=== PATIENT | female | born 1990 | race Caucasian/White ===

== ENCOUNTER 2017-01-28 14:40 | Inpatient (IN) | payer OTHER ==
[2017-01-28 16:38] LABS: URINE APPEARANCE CLEAR; URINE BILIRUBIN NEGATIVE (NEGATIVE); URINE BLOOD NEGATIVE (NEGATIVE); URINE COLOR YELLOW; URINE GLUCOSE (UA) NEGATIVE (NEGATIVE); URINE KETONE NEGATIVE (NEGATIVE); URINE LEUK ESTERASE NEGATIVE (NEGATIVE); URINE NITRITE NEGATIVE (NEGATIVE); URINE UROBILINOGEN NEGATIVE E.U./dl (0.2-1.0)
[2017-01-28 16:50] LABS: URINE PROTEIN 1+ (NEGATIVE)
[2017-01-28] MEDS ORDERED: ONDANSETRON 4 MG/2 ML VIAL ONE ×2 (17:08→19:40)
[2017-01-28] MEDS ORDERED: morphine CARPU-JECT 2 MG/1 ML DISP.SYRIN IVPUSH ONE ×2 (17:14→23:53)
[2017-01-28] MEDS ORDERED: SODIUM CHLORIDE 1,000 ML IV STA (17:14)
[2017-01-28] MEDS ORDERED: ONDANSETRON 4 MG/2 ML VIAL IVPUSH ONE ×2 (17:14→19:31)
[2017-01-28 17:18] LABS: URINE MUCUS FEW; URINE RBC 1 /hpf (0-3); URINE WBC 1 /hpf (3-5)
[2017-01-28] MEDS ORDERED: morphine CARPU-JECT 4 MG/1 ML DISP.SYRIN ONE (17:22)
--- NOTE | 2017-01-28 17:23 | PDOC ---
[id number] [id number] ABD PAIN, NAUSEA, VOMITING Time Seen by Provider: 01/28/17 15:16 History Source: Patient Exam Limitations: No Limitations - History of Present Illness Travel History: No Initial Comments: 01/28/17 17:00 26-year-old female presents to the ED with complaints of lower abdominal cramping that began in her right suprapubic now radiating to the right lower quadrant since this morning. Patient also complaining of nausea and vomiting without fever, chills, diarrhea, abdominal distention history of ovarian cysts, or irregular menses. Patient also denies recent travel, recent illness, or recent change in diet. Timing/Duration: reports: constant Quality: reports: moderate, cramping Abdominal Pain Onset Location: reports: suprapubic Pain Radiation: reports: RLQ Activities at Onset: reports: none Aggravating Factors: improves with: None Alleviating Factors: improves with: None Past History - Past Medical History Allergies/Adverse Reactions: Allergies Allergy/AdvReac Type Severity Reaction Status Date / Time shellfish derived Allergy Severe Difficulty Verified 01/28/17 14:45 Breathing Home Medications: Ambulatory Orders Docusate Sodium [Colace -] 100 mg PO TID #90 capsule 01/29/17 Levofloxacin [Levaquin -] 500 mg PO DAILY #7 tablet 01/29/17 Metronidazole [Flagyl -] 500 mg PO TID #21 tablet 01/29/17 Oxycodone HCl/Acetaminophen [Percocet 5-325 mg Tablet] 1 - 2 tab PO Q6H #28 tab MDD 4 01/29/17 Asthma: Yes (LAST ATTACK > 1 YEAR) Cancer: No Cardiac Disorders: No Diabetes: No HTN: No Seizures: No Thyroid Disease: Yes (HX WITH LAST , RESOLVED) - Psycho/Social/Smoking Cessation Hx Suicidal Ideation: No Smoking History: Current some day smoker Have you smoked in the past 12 months: No Information on smoking cessation initiated: No Hx Alcohol Use: No Drug/Substance Use Hx: No Hx Substance Use Treatment: No Patient Lives Alone: No Lives with/in: spouse/SO Review of Systems - Review of Systems Able to Perform ROS?: Yes Constitutional: No: Symptoms Reported HEENTM: No: Symptoms Reported Respiratory: No: Symptoms reported Cardiac (ROS): No: Symptoms Reported ABD/GI: Yes: Nausea, Vomiting, Abdominal cramping : No: Symptoms Reported Musculoskeletal: No: Symptoms Reported Integumentary: No: Symptoms Reported Neurological: No: Symptoms reported *Physical Exam - Vital Signs Last Vital Signs Temp Pulse Resp BP Pulse Ox 97.8 F 95 H 20 122/77 98 01/28/17 14:43 01/28/17 14:43 01/28/17 14:43 01/28/17 14:43 01/28/17 14:43 - Physical Exam General Appearance: Yes: Nourished, Appropriately Dressed. No: Apparent Distress Respiratory/Chest: positive: Lungs Clear, Normal Breath Sounds. negative: Respiratory Distress, Accessory Muscle Use Cardiovascular: positive: Regular Rhythm, Regular Rate. negative: Murmur Gastrointestinal/Abdominal: positive: Normal Bowel Sounds, Soft, Tenderness ( moderate amount to right suprapubic. mild tenderness to right lower quadrant. no right upper quadrant tenderness). negative: Distended, Guarding, Rebound, Mass Musculoskeletal: negative: CVA Tenderness Extremity: negative: Pedal Edema Integumentary: positive: Normal Color, Warm, Moist Neurologic: positive: Motor Strength 5/5 (ambulatory) ED Treatment Course - LABORATORY CBC & Chemistry Diagram: 01/30/17 06:50 01/30/17 06:50 - ADDITIONAL ORDERS Additional order review: Laboratory Results 01/28/17 01/28/17 16:29 16:10 Urine Color Yellow Urine Appearance Clear Urine pH 6.0 Ur Specific [place] 1.028 Urine Protein 1+ H Urine Glucose (UA) Negative Urine Ketones Negative Urine Blood Negative Urine Nitrite Negative Urine Bilirubin Negative Urine Urobilinogen Negative Ur Leukocyte Esterase Negative Urine HCG, Qual Negative Medical Decision Making - Medical Decision Making 01/28/17 17:22 Patient with sudden onset of right suprapubic cramping associated nausea and vomiting since this morning. Patient states pain radiates to her right lower quadrant. Patient concerning for ovarian cyst versus UTI versus versus appendicitis. Will order imaging once labs are resulted. patient ordered for labs, urine, IV fluids, antiemetic and pain control 01/28/17 19:02 Laboratory Tests 01/28/17 01/28/17 01/28/17 16:10 16:29 17:30 WBC 17.6 H D Hgb 13.3 D Hct 41.3 D Urine Protein 1+ H Urine Nitrite Negative Ur Leukocyte Esterase Negative Urine WBC 1 Urine HCG, Qual Negative Patient states feeling better after receiving morphine and antiemetic. Patient has an elevated white count and concerning for appendicitis. Patient ordered for abdominal CT with by mouth IV contrast. *DC/Admit/Observation/Transfer Diagnosis at time of Disposition: Appendicitis, acute - Discharge Dispostion Condition at time of disposition: Stable - Prescriptions
[2017-01-28 17:42] LABS: MCHC 32.2 g/dl (32.0-36.0); MEAN CELL VOLUME 84.1 fl (80-96); MEAN PLT VOLUME 8.9 fl (7.5-11.1); PLATELET COUNT 209 K/MM3 (134-434); RDW 15.3 % (11.6-15.6); WHITE BLOOD COUNT 17.6 K/mm3 (4.0-10.0)
--- NOTE | 2017-01-28 19:33 | PDOC ---
ED Treatment Course - LABORATORY CBC & Chemistry Diagram: 01/28/17 17:30 01/28/17 18:00 - ADDITIONAL ORDERS Additional order review: Laboratory Results 01/28/17 01/28/17 01/28/17 17:30 16:29 16:10 Sodium Cancelled Potassium Cancelled Chloride Cancelled Carbon Dioxide Cancelled Anion Gap Cancelled BUN Cancelled Creatinine Cancelled Creat Clearance w eGFR Cancelled Random Glucose Cancelled Calcium Cancelled Total Bilirubin Cancelled AST Cancelled ALT Cancelled Alkaline Phosphatase Cancelled Total Protein Cancelled Albumin Cancelled Urine Color Yellow Urine Appearance Clear Urine pH 6.0 Ur Specific [place] 1.028 Urine Protein 1+ H Urine Glucose (UA) Negative Urine Ketones Negative Urine Blood Negative Urine Nitrite Negative Urine Bilirubin Negative Urine Urobilinogen Negative Ur Leukocyte Esterase Negative Urine RBC 1 Urine WBC 1 Ur Epithelial Cells Few Urine Mucus Few Urine HCG, Qual Negative 01/28/17 17:30 RBC 4.91 D MCV 84.1 MCHC 32.2 RDW 15.3 MPV 8.9 D Neutrophils % Y Lymphocytes % Y - Medications Given in the ED: ED Medications Discontinued Medications Generic Name Dose Route Start Last Admin Trade Name Freq PRN Reason Stop Dose Admin Sodium Chloride 1,000 mls @ 1,000 mls/hr 01/28/17 17:14 01/28/17 17:18 Normal Saline - IV 01/28/17 18:13 1,000 mls/hr ASDIR STA Administration Morphine Sulfate 4 mg 01/28/17 17:14 01/28/17 17:25 Morphine Injection - IVPUSH 01/28/17 17:15 4 mg ONCE ONE Administration Ondansetron HCl 4 mg 01/28/17 17:14 01/28/17 17:18 Zofran Injection IVPUSH 01/28/17 17:15 4 mg ONCE ONE Administration Progress Note - Progress Note Progress Note: I have received report from KATI Penn regarding this patient. Pt's initial chief complaint: right lower abd pain with nausea and vomiting. Pt's work up completed prior to sign out: labs, UA Pt treatment given from prior staff: IV fluids, morphine, zofran Pt plan to be completed: Awaiting CT scan abd/pelvis Dispo: Pending Medical Decision Making - Medical Decision Making A/P: 26 y/o afebrile female c/o right lower abd pain with nausea and vomiting since this morning. The patient was initially assessed by [employer] [facility]. Patient has an elevated WBC count of 17. Awaiting CT scan of abd/pelvis. CT scan abd/pelvis IMPRESSION: Acute appendicitis without abscess formation. Pt made NPO. Ordered blood cultures and 3g IV unasyn Placed call to Dr. Capps and Dr. Dominick Capps will take her to surgery in the morning Dr. Tan wants her admitted to hospitalist Dr. Gupta accepts admission to med/surg *DC/Admit/Observation/Transfer Diagnosis at time of Disposition: Appendicitis, acute Qualifiers: Acute appendicitis type: with localized peritonitis Qualified Code(s): K35.3 - Acute appendicitis with localized peritonitis - Discharge Dispostion Condition at time of disposition: Stable Admit: Yes - Referrals Referrals: Bola Tan MD [Primary Care Provider] -
[2017-01-28 19:47] LABS: ALBUMIN 3.7 g/dl (3.4-5.0); ANION GAP 10 (8-16); CALCIUM 8.9 mg/dL (8.5-10.1); CO2 25 mmol/L (21-32); CREATININE 0.6 mg/dL (0.55-1.02); GLUCOSE,RANDOM 107 mg/dL (74-106); SGOT/AST 10 U/L (15-37); SGPT/ALT 22 U/L (12-78)
[2017-01-28 19:50] LABS: ALK PHOS 115 U/L (45-117); BILIRUBIN,TOTAL 0.9 mg/dL (0.2-1.0); TOT PROT 7.3 g/dl (6.4-8.2)
[2017-01-28 22:02] LABS: PLATELET ESTIMATE ADEQUATE (NORMAL)
[2017-01-28] MEDS ORDERED: AMPICILLIN NA/SULBACTAM NA 3 GM in SODIUM CHLORIDE 100 ML IVPB ONE (22:35)
--- NOTE | 2017-01-28 23:17 | PN ---
<Rafi Gupta - Last Filed: 01/28/17 23:16> Teaching Attending Note Name of Resident: Ji Walls ATTENDING PHYSICIAN STATEMENT I saw and evaluated the patient. I reviewed the resident's note and discussed the case with the resident. I agree with the resident's findings and plan as documented. SUBJECTIVE: OBJECTIVE: ASSESSMENT AND PLAN: <Cyndy Manehel - Last Filed: 01/29/17 05:08> Teaching Attending Note ATTENDING PHYSICIAN STATEMENT I saw and evaluated the patient. I reviewed the resident's note and discussed the case with the resident. I agree with the resident's findings and plan as documented. SUBJECTIVE: The patient is a 26 yo F with PMHx of Asthma who presents with lower abdominal cramping that began in her R superpubic region which radiated to RLQ. Patient notes nausea and vomiting and intermittent chills. OBJECTIVE: Last Vital Signs Temp Pulse Resp BP Pulse Ox 97.8 F 83 18 138/78 96 01/28/17 14:43 01/28/17 23:02 01/28/17 23:02 01/28/17 23:02 01/28/17 23:02 GEN: NAD. +Obese female resting in bed. HEENT: NCAT, PERRL CARD: RRR, S1 S2 RESP: CTAB ABD: +Tenderness to palpation RLQ. EXT: - CCE CBCD WBC 17.6 K/mm3 (4.0-10.0) H D 01/28/17 17:30 RBC 4.91 M/mm3 (3.60-5.2) D 01/28/17 17:30 Hgb 13.3 GM/dL (10.7-15.3) D 01/28/17 17:30 Hct 41.3 % (32.4-45.2) D 01/28/17 17:30 MCV 84.1 fl (80-96) 01/28/17 17:30 MCHC 32.2 g/dl (32.0-36.0) 01/28/17 17:30 RDW 15.3 % (11.6-15.6) 01/28/17 17:30 Plt Count 209 K/MM3 (134-434) D 01/28/17 17:30 MPV 8.9 fl (7.5-11.1) D 01/28/17 17:30 CMP Sodium 138 mmol/L (136-145) 01/28/17 18:00 Potassium 4.1 mmol/L (3.5-5.1) 01/28/17 18:00 Chloride 103 mmol/L (98-107) 01/28/17 18:00 Carbon Dioxide 25 mmol/L (21-32) 01/28/17 18:00 Anion Gap 10 (8-16) 01/28/17 18:00 BUN 11 mg/dL (7-18) D 01/28/17 18:00 Creatinine 0.6 mg/dL (0.55-1.02) 01/28/17 18:00 Creat Clearance w eGFR > 60 (>60) 01/28/17 18:00 Calcium 8.9 mg/dL (8.5-10.1) 01/28/17 18:00 Total Bilirubin 0.9 mg/dL (0.2-1.0) D 01/28/17 18:00 AST 10 U/L (15-37) L 01/28/17 18:00 ALT 22 U/L (12-78) D 01/28/17 18:00 Alkaline Phosphatase 115 U/L (45-117) 01/28/17 18:00 Total Protein 7.3 g/dl (6.4-8.2) D 01/28/17 18:00 Albumin 3.7 g/dl (3.4-5.0) D 01/28/17 18:[address] Abdomen and Pelvis with Contrast Impression: Findings consistent with acute appendicitis with stranding of the surrounding mesenteric fat and without evidence of extraluminal air or abscess formation. Diverticulosis coli in the sigmoid colon without evidence of acute diverticulitis. Enlarged/elongated liver that may be due to a Tarun's lobe. ASSESSMENT AND PLAN: The patient is a 26 yo F with PMHx of Asthma who presents with abdominal pain found to have acute appendicitis. 1.) Acute Appendicitis -NPO -IVF -Surgical consult -Continue with unasyn -Pain control -Type and screen -Coags in AM 2.) DVT ppx -SCDs Admit to med surg Documentation prepared by Latricia Mane, acting as esthetician and manager medical spa for Rafi Gupta MD.
[2017-01-28] MEDS ORDERED: LACTATED RINGERS SOLUTION 1,000 ML IV SCH (23:45)
[2017-01-28] MEDS ORDERED: morphine CARPU-JECT 2 MG/1 ML DISP.SYRIN ONE (23:58)
[2017-01-29] MEDS ORDERED: morphine CARPU-JECT 4 MG/1 ML DISP.SYRIN IVPUSH PRN
--- NOTE | 2017-01-29 00:08 | MSN ---
Admitting History and Physical - Primary Care Physician PCP: Dr. Tan - Admission Chief Complaint: Abdominal cramping since this morning History of Present Illness: Pt is a 26 yo morbidly obese F with a PMHx of asthma who presents to the ED with abdominal cramping since this morning. The pain was initially located in the umbilical area and subsequently moved down into the RLQ. Pt admits to associated nausea with 3 total episodes of vomiting (2x at home, 1x in ED). She denies blood in the vomit. Pt has been experiencing chills on and off since this morning and has a loss of appetite. Denies fevers, diarrhea, SOB, CP, or irregular menses. 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) - Past Surgical History Past Surgical History: Yes: (x2) - Smoking History Smoking history: Current every day smoker (1/2 ppd for 10 yrs) Have you smoked in the past 12 months: Yes - Alcohol/Substance Use Hx Alcohol Use: No History of Substance Use: reports: None - Social History ADL: Independent History of Recent Travel: No Home Medications - Allergies Allergies/Adverse Reactions: Allergies Allergy/AdvReac Type Severity Reaction Status Date / Time shellfish derived Allergy Severe Difficulty Verified 01/28/17 14:45 Breathing - Home Medications Home Medications: Ambulatory Orders NK [No Known Home Medication] 01/28/17 Home Medications (free text): Began taking OCPs a few days ago Family Disease History - Family Disease History Other Family History: Hyperthyroidism, hypothyroidism, heart disease, cancer ( multiple types) Review of Systems - Review of Systems Constitutional: reports: Chills, Loss of Appetite. denies: Fever Cardiovascular: denies: Chest Pain, Shortness of Breath Respiratory: denies: SOB Gastrointestinal: reports: Abdominal Pain, Nausea, Vomiting. denies: Diarrhea, Melena, Vomiting Blood Genitourinary: denies: Burning, Dysuria Neurological: reports: Other (Lightheadedness) Physical Examination Vital Signs: Vital Signs Period Temp Pulse Resp BP Sys/Mccain Pulse Ox Last 24 Hr 97.8 F 83-95 18-20 122-138/77-78 96-98 Constitutional: Yes: No Distress, Calm, Obese Eyes: Yes: WNL, Conjunctiva Clear, EOM Intact HENT: Yes: WNL, Atraumatic, Normocephalic Neck: Yes: WNL, Trachea Midline Cardiovascular: Yes: WNL, Regular Rate and Rhythm, S1, S2. No: JVD, Gallop, Murmur, Rub Respiratory: Yes: WNL, Regular, CTA Bilaterally. No: Rales, Rhonchi, Wheezes Gastrointestinal: Yes: Soft, Abdomen, Obese, Hypoactive Bowel Sounds, Tenderness (TTP over the R side of abdomen, + guarding), Tenderness, Epigastrium , Other (Positive obturator sign, negative Rovsings) Extremities: Yes: WNL Edema: No Peripheral Pulses: Left Doralis Pedis: 2+, Right Dorsalis Pedis: 2+ Integumentary: No: Jaundice, Petechiae, Venous Stasis Changes Neurological: Yes: WNL, Alert, Oriented ...Motor Strength: WNL Psychiatric: Yes: WNL, Alert, Oriented Labs: CBC WBC 17.6 K/mm3 (4.0-10.0) H D 01/28/17 17:30 RBC 4.91 M/mm3 (3.60-5.2) D 01/28/17 17:30 Hgb 13.3 GM/dL (10.7-15.3) D 01/28/17 17:30 Hct 41.3 % (32.4-45.2) D 01/28/17 17:30 MCV 84.1 fl (80-96) 01/28/17 17:30 MCHC 32.2 g/dl (32.0-36.0) 01/28/17 17:30 RDW 15.3 % (11.6-15.6) 01/28/17 17:30 Plt Count 209 K/MM3 (134-434) D 01/28/17 17:30 MPV 8.9 fl (7.5-11.1) D 01/28/17 17:30 Neutrophils % 89.0 % (42.8-82.8) H D 01/28/17 17:30 Lymphocytes % 8.0 % (8-40) D 01/28/17 17:30 Monocytes % 3.0 % (3.8-10.2) L 01/28/17 17:30 Platelet Estimate Adequate (NORMAL) 01/28/17 17:30 CMP Sodium 138 mmol/L (136-145) 01/28/17 18:00 Potassium 4.1 mmol/L (3.5-5.1) 01/28/17 18:00 Chloride 103 mmol/L (98-107) 01/28/17 18:00 Carbon Dioxide 25 mmol/L (21-32) 01/28/17 18:00 Anion Gap 10 (8-16) 01/28/17 18:00 BUN 11 mg/dL (7-18) D 01/28/17 18:00 Creatinine 0.6 mg/dL (0.55-1.02) 01/28/17 18:00 Creat Clearance w eGFR > 60 (>60) 01/28/17 18:00 Random Glucose 107 mg/dL (74-106) H 01/28/17 18:00 Calcium 8.9 mg/dL (8.5-10.1) 01/28/17 18:00 Total Bilirubin 0.9 mg/dL (0.2-1.0) D 01/28/17 18:00 AST 10 U/L (15-37) L 01/28/17 18:00 ALT 22 U/L (12-78) D 01/28/17 18:00 Alkaline Phosphatase 115 U/L (45-117) 01/28/17 18:00 Total Protein 7.3 g/dl (6.4-8.2) D 01/28/17 18:00 Albumin 3.7 g/dl (3.4-5.0) D 01/28/17 18:00 Urine Test Results Urine Color Yellow 01/28/17 16:29 Urine Appearance Clear 01/28/17 16:29 Urine pH 6.0 (5.0-8.0) 01/28/17 16:29 Ur Specific [place] 1.028 (1.001-1.035) 01/28/17 16:29 Urine Protein 1+ (NEGATIVE) H 01/28/17 16:29 Urine Glucose (UA) Negative (NEGATIVE) 01/28/17 16:29 Urine Ketones Negative (NEGATIVE) 01/28/17 16:29 Urine Blood Negative (NEGATIVE) 01/28/17 16:29 Urine Nitrite Negative (NEGATIVE) 01/28/17 16:29 Urine Bilirubin Negative (NEGATIVE) 01/28/17 16:29 Ur Leukocyte Esterase Negative (NEGATIVE) 01/28/17 16:29 Urine RBC 1 /hpf (0-3) 01/28/17 16:29 Urine WBC 1 /hpf (3-5) 01/28/17 16:29 Ur Epithelial Cells Few /hpf (FEW) 01/28/17 16:29 Urine Mucus Few 01/28/17 16:29 Urine B-HCG: negative Blood Cx: pending Imaging - Results Cat Scan: Report Reviewed (Acute appendicitis (18 mm dilated appendix with fat stranding, -abscess, -perf), sigmoid diverticula, enlarged liver, nml ovaries), Image Reviewed Problem List - Problems (1) Appendicitis, acute (2) H/O section complicating (3) Morbidly obese (4) Status post primary low transverse section Assessment/Plan Pt is a 26 yo morbidly obese F with a PMHx of asthma who presented to the ED with RLQ abdominal pain since this morning. Pt was diagnosed with acute appendicitis via CT scan and is being admitted for medical and surgical management. 1. Acute appendicitis -As seen on CTAP with oral contrast. No abscess or perforation seen -IVF with LRs @125cc/hr -Unasyn 3gm IV Q6H (first dose given in ED) -Morphine 2gm IV Q4H prn -Zofran 4mg IV prn -Type and screen pending -Coags pending -Repeat CBC and BMP in AM -FU blood Cx -NPO -Surgery consult pending (Dr. Capps) 2. Leukocytosis -WBC elevated @17.6 -Most likely 2/2 acute appendicitis -Continue to trend 3. Hx of asthma -Stable -Albuterol inhaler 1 amp NEB Q8H prn 4. FEN -LRs @125cc/hr -BMP WNL -NPO in preparation for surgery 5. DVT ppx -SCDs -Hold heparin considering pt will be going for surgery 6. Dispo -Pt to be admitted for appendectomy by Dr. Jefry Pitts, MS3
--- NOTE | 2017-01-29 00:27 | HP ---
CHIEF COMPLAINT: abd pain PCP: Dr. Tan HISTORY OF PRESENT ILLNESS: 26 y/o morbidly obese F presents to ER with c/o abdominal pain since this morning. Pain is throbbing and constant and associated with nausea, vomiting (3 episodes, 2 in ER, 1 at home, all non-bloody), and intermittent chills. Pain started in umbilical area and has now moved to the right side of her abdomen and she has loss of appetite. She states this is the first time she has had this type of pain. She denies any CP, SOB, fevers, trauma to the area, diarrhea , constipation, dysuria. She has started to take OCPs 2 days ago. ER course was notable for: (1) unasyn, ct abd w/oral contrast, zofran, morphine (2) (3) PAST MEDICAL HISTORY: morbid obesity, asthma PAST SURGICAL HISTORY: x2 Social History: Smokin/2 ppd for 10 years Alcohol: denies Drugs: denies Family History: Hypo and hyperthyroid, and many different cancers Allergies shellfish derived Allergy (Severe, Verified 01/28/17 14:45) Difficulty Breathing HOME MEDICATIONS: Home Medications Medication Instructions Recorded NK [No Known Home Medication] 01/28/17 REVIEW OF SYSTEMS CONSTITUTIONAL: chills, loss of appetite Absent: fever, diaphoresis, generalized weakness, malaise, weight change HEENT: Absent: rhinorrhea, nasal congestion, throat pain, throat swelling, difficulty swallowing, mouth swelling, ear pain, eye pain, visual changes CARDIOVASCULAR: Absent: chest pain, syncope, palpitations, irregular heart rate, lightheadedness , peripheral edema RESPIRATORY: Absent: cough, shortness of breath, dyspnea with exertion, orthopnea, wheezing, stridor, hemoptysis GASTROINTESTINAL: abd pain, nausea, vomiting Absent: abdominal distension, diarrhea, constipation, melena, hematochezia GENITOURINARY: Absent: dysuria, frequency, urgency, hesitancy, hematuria, flank pain, genital pain MUSCULOSKELETAL: Absent: myalgia, arthralgia, joint swelling, back pain, neck pain SKIN: Absent: rash, itching, pallor HEMATOLOGIC/IMMUNOLOGIC: Absent: easy bleeding, easy bruising, lymphadenopathy, frequent infections ENDOCRINE: Absent: unexplained weight gain, unexplained weight loss, heat intolerance, cold intolerance NEUROLOGIC: Absent: headache, focal weakness or paresthesias, dizziness, unsteady gait, seizure, mental status changes, bladder or bowel incontinence PSYCHIATRIC: Absent: anxiety, depression, suicidal or homicidal ideation, hallucinations. PHYSICAL EXAMINATION Vital Signs - 24 hr 01/28/17 01/28/17 14:43 23:02 Temperature 97.8 F Pulse Rate 95 H Pulse Rate [ 83 Apical] Respiratory 20 18 Rate Blood Pressure 122/77 Blood Pressure 138/78 [Left Arm] O2 Sat by Pulse 98 96 Oximetry (%) GENERAL: Awake, alert, and fully oriented, in no acute distress. HEAD: Normal with no signs of trauma. EYES: Pupils equal, round and reactive to light, extraocular movements intact, sclera anicteric, conjunctiva clear. No lid lag. EARS, NOSE, THROAT: Ears normal, nares patent, oropharynx clear without exudates. Moist mucous membranes. NECK: Normal range of motion, supple without lymphadenopathy, JVD, or masses. LUNGS: Breath sounds equal, clear to auscultation bilaterally. No wheezes, and no crackles. No accessory muscle use. HEART: Regular rate and rhythm, normal S1 and S2 without murmur, rub or gallop. ABDOMEN: epigastric & LUQ moderate pain to palpation; RUQ mild pain to palpation. obese, normoactive bowel sounds. +obturator sign, mild tenderness at mcburneys point. MUSCULOSKELETAL: Normal range of motion at all joints. No bony deformities or tenderness LOWER EXTREMITIES: 2+ pulses, warm, well-perfused. No calf tenderness. No peripheral edema. NEUROLOGICAL: Normal speech. Gait not observed. PSYCHIATRIC: Cooperative. Good eye contact. Appropriate mood and affect. SKIN: Warm, dry, normal turgor, no rashes or lesions noted, normal capillary refill. Laboratory Results - last 24 hr 01/28/17 01/28/17 01/28/17 16:10 16:29 17:30 WBC 17.6 H D RBC 4.91 D Hgb 13.3 D Hct 41.3 D MCV 84.1 MCHC 32.2 RDW 15.3 Plt Count 209 D MPV 8.9 D Neutrophils % 89.0 H D Lymphocytes % 8.0 D Monocytes % 3.0 L Platelet Estimate Adequate Sodium Potassium Chloride Carbon Dioxide Anion Gap BUN Creatinine Creat Clearance w eGFR Random Glucose Calcium Total Bilirubin AST ALT Alkaline Phosphatase Total Protein Albumin Urine Color Yellow Urine Appearance Clear Urine pH 6.0 Ur Specific [place] 1.028 Urine Protein 1+ H Urine Glucose (UA) Negative Urine Ketones Negative Urine Blood Negative Urine Nitrite Negative Urine Bilirubin Negative Urine Urobilinogen Negative Ur Leukocyte Esterase Negative Urine RBC 1 Urine WBC 1 Ur Epithelial Cells Few Urine Mucus Few Urine HCG, Qual Negative 01/28/17 01/28/17 17:30 18:00 WBC RBC Hgb Hct MCV MCHC RDW Plt Count MPV Neutrophils % Lymphocytes % Monocytes % Platelet Estimate Sodium Cancelled 138 Potassium Cancelled 4.1 Chloride Cancelled 103 Carbon Dioxide Cancelled 25 Anion Gap Cancelled 10 BUN Cancelled 11 D Creatinine Cancelled 0.6 Creat Clearance w eGFR Cancelled > 60 Random Glucose Cancelled 107 H Calcium Cancelled 8.9 Total Bilirubin Cancelled 0.9 D AST Cancelled 10 L ALT Cancelled 22 D Alkaline Phosphatase Cancelled 115 Total Protein Cancelled 7.3 D Albumin Cancelled 3.7 D Urine Color Urine Appearance Urine pH Ur Specific [place] Urine Protein Urine Glucose (UA) Urine Ketones Urine Blood Urine Nitrite Urine Bilirubin Urine Urobilinogen Ur Leukocyte Esterase Urine RBC Urine WBC Ur Epithelial Cells Urine Mucus Urine HCG, Qual Imaging: CT abd w/oral contrast 01/28/17 Impression: Findings consistent with acute appendicitis with stranding of the surrounding mesenteric fat and without evidence of extraluminal air or abscess formation. Diverticulosis coli in the sigmoid colon without evidence of acute diverticulitis. Enlarged/elongated liver that may be due to a Tarun's lobe. Case discussed with Dr. Luz Maria Pinzon, emergency room caring attending physician Reported By: Feliberto Whelan MD 01/28/17 7840 Active Medications Albuterol Sulfate (Ventolin 0.083% Nebulizer Soln -) 1 amp NEB Q8H PRN PRN Reason: SHORT OF BREATH/WHEEZING Lactated Ringer's (Lactated Ringers Solution) 1,000 mls @ 125 mls/hr IV ASDIR MARK Ampicillin Sodium/Sulbactam Sodium (Unasyn 3 Gm (Pre-Docked)) 100 mls @ 200 mls /hr IVPB ONCE ONE Stop: 01/29/17 03:29 Ampicillin Sodium/Sulbactam Sodium (Unasyn 3 Gm (Pre-Docked)) 100 mls @ 200 mls /hr IVPB Q6H-IV MARK Morphine Sulfate (Morphine Injection -) 2 mg IVPUSH Q4H PRN PRN Reason: PAIN ASSESSMENT/PLAN: 26 y/o F w/morbid obesity presents to ER w/abd pain and found to have acute appendicitis on CT abd. -Acute appendicitis -CT abd: Findings consistent w/acute appendicitis with stranding of the surrounding mesenteric fat and w/o evidence of extraluminal air or abscess formation. -Unasyn 3g iv q6h -Morphine 2mg IV q4h prn for pain -LR @ 125 ml/hr -Surgery consulted - Dr. Capps -NPO -Type and screen in AM ordered, coags ordered for AM -Leukocytosis most likely reactive to acute appendicitis -Monitor WBC -UA negative -f/u BCx -History of asthma -albuterol nebs q8h prn for sob/wheezing -Morbid Obesity -weight loss -DVT ppx -SCDs -FEN -LR @ 125ml/hr -electrolytes wnl -NPO -Dispo -Admit to m/s Problem List - Problem (1) Appendicitis, acute Code(s): K35.80 - UNSPECIFIED ACUTE APPENDICITIS Qualifiers: Acute appendicitis type: with localized peritonitis Qualified Code(s): K35.3 - Acute appendicitis with localized peritonitis (2) Morbidly obese Code(s): E66.01 - MORBID (SEVERE) OBESITY DUE TO EXCESS CALORIES (3) Leukocytosis Code(s): D72.829 - ELEVATED WHITE BLOOD CELL COUNT, UNSPECIFIED Visit type - Emergency Visit Emergency Visit: Yes ED Registration Date: 01/28/17 Care time: The patient presented to the Emergency Department on the above date and was hospitalized for further evaluation of their emergent condition. - New Patient This patient is new to me today: Yes Date on this admission: 01/30/17 - Critical Care Critical Care patient: No
[2017-01-29] MEDS ORDERED: AMPICILLIN NA/SULBACTAM NA 100 ML IVPB ONE (03:00)
[2017-01-29] MEDS ORDERED: AMPICILLIN NA/SULBACTAM NA 3 GM in SODIUM CHLORIDE 100 ML IVPB SCH (03:00)
[2017-01-29 03:59] VITALS: BMI 57.1
[2017-01-29 07:31] LABS: BASOPHIL 0.7 % (0-2.0); EOSINOPHIL 0.7 % (0-4.5); MCH 26.5 pg (25.7-33.7); MCHC 32.2 g/dl (32.0-36.0); MEAN CELL VOLUME 82.3 fl (80-96); MEAN PLT VOLUME 7.9 fl (7.5-11.1); NEUTROPHILS 72.6 % (42.8-82.8); PLATELET COUNT 193 K/MM3 (134-434); RDW 14.8 % (11.6-15.6); WHITE BLOOD COUNT 11.3 K/mm3 (4.0-10.0)
[2017-01-29] MEDS ORDERED: AMPICILLIN NA/SULBACTAM NA 1.5 GM in SODIUM CHLORIDE 100 ML IVPB ONE (08:07)
--- NOTE | 2017-01-29 08:12 | CONSULT ---
[id number] CONSULT REQUEST: We have been asked to surgically evaluate this patient for acute appendicitis. PCP: Gary Blanton HISTORY OF PRESENT ILLNESS: 26 yo female presented to [facility] complaining of abdominal pain that began yesterday morning. The pain began in the center of her abdomen and then moved to her right side. The pain is associated with nausea and vomiting. Her last meal was yesterday around 10 in the morning. Her last BM was yesterday, she denies diarrhea or constipation. She admits to having chills, but denies fever. PMHx: Asthma, last inhaler use 2-3 months ago PSHx: x2 Admits cigarette use, 10 cigs/day, denies alcohol use Home Medications Medication Instructions Recorded NK [No Known Home Medication] 01/28/17 Allergies Allergy/AdvReac Type Severity Reaction Status Date / Time shellfish derived Allergy Severe Difficulty Verified 01/28/17 14:45 Breathing REVIEW OF SYSTEMS: CONSTITUTIONAL: Present: chills, loss of appetite Absent: fever, diaphoresis CARDIOVASCULAR: Absent: chest pain, palpitations, lightheadedness RESPIRATORY: Absent: cough, shortness of breath GASTROINTESTINAL: Present: abdominal pain, nausea, vomiting Absent: diarrhea, constipation GENITOURINARY: Absent: Dysuria MUSCULOSKELETAL: Absent: myalgia, arthralgia SKIN: Absent: rash, itching HEMATOLOGIC/IMMUNOLOGIC: Absent: easy bleeding, easy bruising NEUROLOGIC: Absent: headache, dizziness PHYSICAL EXAM: GENERAL: Awake, alert, and fully oriented, in no acute distress. HEAD: Normal with no signs of trauma. EYES: PERRL, sclera anicteric, conjunctiva clear. NECK: Normal ROM LUNGS: Clear to auscultation bilat HEART: Regular rate and rhythm ABDOMEN: Obese, soft, tender to palpation in RLQ, no guarding MUSCULOSKELETAL: Normal ROM at all joints UPPER EXTREMITIES: warm, well-perfused. LOWER EXTREMITIES: warm, well-perfused. No calf tenderness NEUROLOGICAL: Normal speech, gait not observed. PSYCH: Cooperative SKIN: Warm, dry Vital Signs Temperature 98.1 F 01/29/17 06:00 Pulse Rate 83 01/29/17 06:00 Respiratory Rate 16 01/29/17 06:00 Blood Pressure 123/52 01/29/17 06:00 O2 Sat by Pulse Oximetry (%) 96 01/29/17 03:05 Lab Results WBC 11.3 K/mm3 (4.0-10.0) H D 01/29/17 06:00 RBC 4.35 M/mm3 (3.60-5.2) 01/29/17 06:00 Hgb 11.5 GM/dL (10.7-15.3) D 01/29/17 06:00 Hct 35.8 % (32.4-45.2) 01/29/17 06:00 MCV 82.3 fl (80-96) 01/29/17 06:00 MCHC 32.2 g/dl (32.0-36.0) 01/29/17 06:00 RDW 14.8 % (11.6-15.6) 01/29/17 06:00 Plt Count 193 K/MM3 (134-434) 01/29/17 06:00 Sodium 138 mmol/L (136-145) 01/28/17 18:00 Potassium 4.1 mmol/L (3.5-5.1) 01/28/17 18:00 Chloride 103 mmol/L (98-107) 01/28/17 18:00 Carbon Dioxide 25 mmol/L (21-32) 01/28/17 18:00 Anion Gap 10 (8-16) 01/28/17 18:00 BUN 11 mg/dL (7-18) D 01/28/17 18:00 Creatinine 0.6 mg/dL (0.55-1.02) 01/28/17 18:00 Random Glucose 107 mg/dL (74-106) H 01/28/17 18:00 Calcium 8.9 mg/dL (8.5-10.1) 01/28/17 18:00 CT abdomen/pelvis: Findings consistent with acute appendicitis with stranding of surrounding mesenteric fat and without evidence of extraluminal air or abscess formation. Problem List - Problems (1) Appendicitis, acute Assessment/Plan: Patient discussed with Dr. Capps, patient is booked to go to the OR today for a laparoscopic, possible open, appendectomy NPO, IV fluids Abx- Unasyn ordered Pain control Code(s): K35.80 - UNSPECIFIED ACUTE APPENDICITIS Qualifiers: Acute appendicitis type: with localized peritonitis Qualified Code(s ): K35.3 - Acute appendicitis with localized peritonitis Visit type - Case Type Case Type: ED Admission - Emergency Emergency Visit: Yes ED Registration Date: 01/28/17 Care time: The patient presented to the Emergency Department on the above date and was hospitalized for further evaluation of their emergent condition. - New patient This patient is new to me today: Yes Date on this admission: 01/29/17 - Critical Care Critical Care patient: No <Aurelio Capps - Last Filed: 01/29/17 12:14> - Consultation REQUESTING PROVIDER: CONSULT REQUEST: We have been asked to surgically evaluate this patient for ( specify). PCP:Gary Blanton HISTORY OF PRESENT ILLNESS: PMHx: PSHx: Home Medications Medication Instructions Recorded NK [No Known Home Medication] 01/28/17 Allergies Allergy/AdvReac Type Severity Reaction Status Date / Time shellfish derived Allergy Severe Difficulty Verified 01/28/17 14:45 Breathing REVIEW OF SYSTEMS: CONSTITUTIONAL: Absent: fever, chills, diaphoresis, generalized weakness, malaise, loss of appetite, weight change CARDIOVASCULAR: Absent: chest pain, syncope, palpitations, irregular heart rate, lightheadedness , peripheral edema RESPIRATORY: Absent: cough, shortness of breath, dyspnea with exertion, wheezing, stridor, hemoptysis GASTROINTESTINAL: Absent: abdominal pain, abdominal distension, nausea, vomiting, diarrhea, constipation, melena, hematochezia GENITOURINARY: Absent: dysuria, frequency, urgency, hesitancy, hematuria, flank pain, genital pain MUSCULOSKELETAL: Absent: myalgia, arthralgia, joint swelling, back pain, neck pain SKIN: Absent: rash, itching, pallor HEMATOLOGIC/IMMUNOLOGIC: Absent: easy bleeding, easy bruising, lymphadenopathy NEUROLOGIC: Absent: headache, focal weakness, paresthesias, dizziness, unsteady gait, seizure, mental status changes, bladder or bowel incontinence PSYCHIATRIC: Absent: anxiety, depression, suicidal or homicidal ideation, hallucinations. PHYSICAL EXAM: GENERAL: Awake, alert, and fully oriented, in no acute distress. HEAD: Normal with no signs of trauma. EYES: PERRL, sclera anicteric, conjunctiva clear. NECK: Normal ROM, supple without lymphadenopathy, JVD, or masses. LUNGS: Clear to auscultation bilat anteriorly. No wheezes, and no crackles. No accessory muscle use. HEART: Regular rate and rhythm. No murmurs ABDOMEN: Soft, nontender, not distended, normoactive bowel sounds, no guarding, no rebound, no masses. No organomegaly. MUSCULOSKELETAL: Normal ROM at all joints. No bony deformities or tenderness. No CVA tenderness. UPPER EXTREMITIES: 2+ pulses, warm, well-perfused. No cyanosis. Cap refill <2 seconds. No peripheral edema. LOWER EXTREMITIES: 2+ pulses, warm, well-perfused. No calf tenderness. No peripheral edema. NEUROLOGICAL: Normal speech, gait not observed. PSYCH: Cooperative. Good eye contact. Appropriate mood and affect. SKIN: Warm, dry, normal turgor, no rashes or lesions noted. Vital Signs Temperature 98.1 F 01/29/17 06:00 Pulse Rate 83 01/29/17 06:00 Respiratory Rate 16 01/29/17 06:00 Blood Pressure 123/52 01/29/17 06:00 O2 Sat by Pulse Oximetry (%) 96 01/29/17 03:05 Lab Results WBC 11.3 K/mm3 (4.0-10.0) H D 01/29/17 06:00 RBC 4.35 M/mm3 (3.60-5.2) 01/29/17 06:00 Hgb 11.5 GM/dL (10.7-15.3) D 01/29/17 06:00 Hct 35.8 % (32.4-45.2) 01/29/17 06:00 MCV 82.3 fl (80-96) 01/29/17 06:00 MCHC 32.2 g/dl (32.0-36.0) 01/29/17 06:00 RDW 14.8 % (11.6-15.6) 01/29/17 06:00 Plt Count 193 K/MM3 (134-434) 01/29/17 06:00 Sodium 141 mmol/L (136-145) 01/29/17 06:35 Potassium 3.7 mmol/L (3.5-5.1) 01/29/17 06:35 Chloride 105 mmol/L (98-107) 01/29/17 06:35 Carbon Dioxide 27 mmol/L (21-32) 01/29/17 06:35 Anion Gap 9 (8-16) 01/29/17 06:35 BUN 10 mg/dL (7-18) 01/29/17 06:35 Creatinine 0.6 mg/dL (0.55-1.02) 01/29/17 06:35 Random Glucose 97 mg/dL (74-106) 01/29/17 06:35 Calcium 8.5 mg/dL (8.5-10.1) 01/29/17 06:35 Blood Type A POSITIVE 01/29/17 06:35 Antibody Screen Negative 01/29/17 06:35 INR 1.25 (0.82-1.09) H 01/29/17 06:35 Agree Acute appendicitis NPO Antibiotics For laparoscopic possible open appendectomy Risks and benefits explained Understands and agrees
[2017-01-29 08:13] LABS: CALCIUM 8.5 mg/dL (8.5-10.1); CREATININE 0.6 mg/dL (0.55-1.02)
[2017-01-29 08:22] LABS: INR 1.25 (0.82-1.09); PROTHROMBIN TIME (PATIENT) 13.8 SEC (9.98-11.88)
[2017-01-29] MEDS ORDERED: METRONIDAZOLE PREMIXED IVPB 50 ML IVPB SCH (11:15)
[2017-01-29] MEDS ORDERED: LEVOFLOXACIN 750 MG IVPB 150 ML IVPB ONE (11:30)
[2017-01-29] MEDS ORDERED: AMPICILLIN NA/SULBACTAM NA 1.5 GM/100 ML PRE-DOCKED IVPB ONE (11:45)
[2017-01-29] MEDS ORDERED: MIDAZOLAM HCL 2 MG/2 ML SINGLE DOSE VIAL ONE (12:15)
[2017-01-29] MEDS ORDERED: SUCCINYLCHOLINE CHLORIDE 200 MG/10 ML VIAL ONE (12:15)
[2017-01-29] MEDS ORDERED: LIDOCAINE HCL/PF 2% SDV 5ML VIAL ONE (12:16)
[2017-01-29] MEDS ORDERED: DEXAMETHASONE SOD PHOSPHATE 4 MG/1 ML VIAL ONE (12:20)
[2017-01-29] MEDS ORDERED: BUPIVACAINE HCL/PF 0.5% (5MG/ML) 10 ML VIAL ONE (12:28)
[2017-01-29] MEDS ORDERED: HYDROmorphone HCL/PF 1 MG/ML VIAL (FOR PYXIS CHARGING ONLY) ONE (13:19)
--- NOTE | 2017-01-29 13:25 | PN ---
<Ace Rutherford - Last Filed: 01/29/17 13:14> Physical Exam: SUBJECTIVE: Patient seen and examined Pt is awake, alert and oriented no more nausea or vomiting since yesterday no fever or chills no diarrhea or no constipation no dysuria OBJECTIVE: Vital Signs Period Temp Pulse Resp BP Sys/Mccain Pulse Ox Last 24 Hr 97.9 F-98.1 F 81-86 16-24 117-123/51-64 96-96 GENERAL: The patient is awake, alert, and fully oriented, in no acute distress. HEAD: Normal with no signs of trauma. NECK: Trachea midline, full range of motion, supple. LUNGS: Breath sounds equal, clear to auscultation bilaterally, no wheezes, no crackles, no accessory muscle use. HEART: Regular rate and rhythm, S1, S2 without murmur, rub or gallop. ABDOMEN: Soft, obese, right lower quadrant tenderness, non-distended, normoactive bowel sounds, no guarding, no rebound, no hepatosplenomegaly, no masses. EXTREMITIES: 2+ pulses, warm, well-perfused, no edema. NEUROLOGICAL: Normal speech, normal gait PSYCH: Normal mood, normal affect. SKIN: Warm, dry, normal turgor, no rashes or lesions noted Laboratory Results - last 24 hr 01/29/17 01/29/17 01/29/17 06:00 06:35 06:35 WBC 11.3 H D RBC 4.35 Hgb 11.5 D Hct 35.8 MCV 82.3 MCHC 32.2 RDW 14.8 Plt Count 193 MPV 7.9 D Neutrophils % 72.6 Lymphocytes % 20.7 D Monocytes % 5.3 Eosinophils % 0.7 Basophils % 0.7 INR 1.25 H PTT (Actin FS) 29.0 Sodium 141 Potassium 3.7 Chloride 105 Carbon Dioxide 27 Anion Gap 9 BUN 10 Creatinine 0.6 Random Glucose 97 Calcium 8.5 Blood Type Antibody Screen 01/29/17 06:35 WBC RBC Hgb Hct MCV MCHC RDW Plt Count MPV Neutrophils % Lymphocytes % Monocytes % Eosinophils % Basophils % INR PTT (Actin FS) Sodium Potassium Chloride Carbon Dioxide Anion Gap BUN Creatinine Random Glucose Calcium Blood Type A POSITIVE Antibody Screen Negative Active Medications Generic Name Dose Route Start Last Admin Trade Name Freq PRN Reason Stop Dose Admin Albuterol Sulfate 1 amp 01/29/17 00:00 Ventolin 0.083% Nebulizer Soln - NEB Q8H PRN SHORT OF BREATH/WHEEZING Lactated Ringer's 1,000 mls @ 125 mls/hr 01/28/17 23:45 01/29/17 02:34 Lactated Ringers Solution IV 125 mls/hr ASDIR MARK Administration Ampicillin Sodium/Sulbactam Sodium 100 mls @ 200 mls/hr 01/29/17 03:00 Unasyn 3 Gm (Pre-Docked) IVPB Q6H-IV MARK Metronidazole 50 mls @ 50 mls/hr 01/29/17 11:15 01/29/17 13:12 Flagyl 250mg Premixed Ivpb - IVPB Not Given Q8H-IV MARK Morphine Sulfate 2 mg 01/29/17 00:00 Morphine Injection - IVPUSH Q4H PRN PAIN ASSESSMENT/PLAN: 26 year old female with pmh of asthma presented to the ED with complaint of abdominal pain, nausea, vomiting. Pt was found to have appencitis on CT and Pt is scheduled for surgery today with Dr Capps. Acute appendicitis WBC 11.3 CT abdomen showed acute appendicitis was started on Unasyn Will changed antibiotics to Levaquin 750mg IV daily Flagyl 500mg IV q8h Morphine 2mg IV q4h prn LR at 125 ml/h NPO Dr Capps to have Lap, Possible open, appendectomy h/o asthma Albuterol nebulizer Prn Class III obesity BMI 57.1 Weight loss once recover from surgery FEN Fluid: LR at 125 ml/h Electrolytes: no abnormalities Nutrition: NPO DVT: SCD Disposition: Awaiting surgery Visit type - Emergency Visit Emergency Visit: Yes ED Registration Date: 01/28/17 Care time: The patient presented to the Emergency Department on the above date and was hospitalized for further evaluation of their emergent condition. - New Patient This patient is new to me today: Yes Date on this admission: 01/29/17 - Critical Care Critical Care patient: No - Discharge Referral Referred to [facility] Med P.C.: No <Gary Blanton - Last Filed: 01/29/17 15:14> Physical Exam: ATTENDING PHYSICIAN STATEMENT I saw and evaluated the patient. I reviewed the resident's note and discussed the case with the resident. I agree with the resident's findings and plan as documented. SUBJECTIVE: seen and evaluated at the bedside OBJECTIVE: resting comfortably in bed ASSESSMENT AND PLAN: 26 y/o morbidly obese Female admitted for sepsis due to acute appendicitis -currently afebrile and hemodynamically stable -for lap appendectomy today by General Surgery Attending -casie
[2017-01-29] MEDS ORDERED: ALBUTEROL SO4 6.7 GM HFA INHALER IH ONE (13:32)
[2017-01-29] MEDS ORDERED: KETAMINE HCL 200 MG/20 ML VIAL ONE (13:47)
[2017-01-29] MEDS ORDERED: BUPIVACAINE HCL/PF 0.5% (5MG/ML) 10 ML VIAL IJ ONE ×2 (14:00)
[2017-01-29] MEDS ORDERED: GLYCOPYRROLATE 0.2 MG/1 ML VIAL ONE (14:03)
[2017-01-29] MEDS ORDERED: NEOSTIGMINE METHYLSULFATE 0.5 MG/ML - 10 ML MDV ONE (14:03)
[2017-01-29] MEDS ORDERED: KETOROLAC TROMETHAMINE 30 MG/1 ML VIAL ONE (14:05)
[2017-01-29] MEDS ORDERED: TRIMETHOBENZAMIDE HCL 200MG/2ML INJ IM PRN (14:17)
--- NOTE | 2017-01-29 14:18 | OP ---
Operative Note - Note: Operative Date: 01/29/17 Pre-Operative Diagnosis: Acute appendicitis Operation: Laparoscopic appendectomy Findings: Localized perforation Post-Operative Diagnosis: Other (Perforated acute appendicitis) Surgeon: Aurelio Capps Physician Ophthalmologist: Suzy Santiago Anesthesia: General Specimens Removed: Appendix Estimated Blood Loss (mls): 5 Operative Report Dictated: Yes
[2017-01-29] MEDS ORDERED: PROMETHAZINE HCL 25 MG/1 ML VIAL IVPUSH PRN (14:32)
--- NOTE | 2017-01-29 14:35 | SURG ---
Surgery Household Personal Assistant Note Household Personal Assistant: Suzy Santiago PA-C Date of Service: 01/29/17 Diagnosis: Acute appendicitis Procedure: Laparoscopic appendectomy I was present for the entirety of the operative procedure. For further detail, please refer to operative report. Visit type - Case Type Case Type: ED Admission - Emergency Emergency Visit: Yes ED Registration Date: 01/28/17 Care time: The patient presented to the Emergency Department on the above date and was hospitalized for further evaluation of their emergent condition. - New patient This patient is new to me today: Yes Date on this admission: 01/29/17 - Critical Care Critical Care patient: No
[2017-01-29] MEDS ORDERED: LACTATED RINGERS SOLUTION 1,000 ML IV SCH (14:45)
[2017-01-29] MEDS ORDERED: ALBUTEROL SO4 0.083% IH SOL 2.5 MG/3 ML VIAL.NEB. NEB PRN ×2 (14:48)
[2017-01-29] MEDS ORDERED: AMPICILLIN NA/SULBACTAM NA 100 ML IVPB SCH (15:00)
[2017-01-29] MEDS: LACTATED RINGERS SOLUTION 1,000 ML IV SCH (17:10)
[2017-01-29] MEDS: AMPICILLIN NA/SULBACTAM NA 100 ML IVPB SCH (17:11)
[2017-01-29] MEDS: METRONIDAZOLE PREMIXED IVPB 50 ML IVPB SCH (17:53)
[2017-01-29] MEDS: morphine CARPU-JECT 2 MG/1 ML DISP.SYRIN IVPUSH PRN (20:07)
[2017-01-30] MEDS: morphine CARPU-JECT 2 MG/1 ML DISP.SYRIN IVPUSH PRN ×2 (01:07→08:54)
[2017-01-30] MEDS: LACTATED RINGERS SOLUTION 1,000 ML IV SCH (01:08)
[2017-01-30] MEDS: METRONIDAZOLE PREMIXED IVPB 50 ML IVPB SCH ×2 (01:09→10:04)
[2017-01-30 08:23] LABS: BASOPHIL 0.3 % (0-2.0); MCH 27.1 pg (25.7-33.7); MCHC 32.6 g/dl (32.0-36.0); MEAN CELL VOLUME 82.9 fl (80-96); MEAN PLT VOLUME 8.2 fl (7.5-11.1); PLATELET COUNT 199 K/MM3 (134-434); RDW 14.7 % (11.6-15.6); WHITE BLOOD COUNT 12.5 K/mm3 (4.0-10.0)
--- NOTE | 2017-01-30 08:28 | SPEC ---
DATE OF OPERATION: 01/29/2017 SURGEON: Rober Capps MD RESEARCH ASSOCIATE MOLECULAR BIOLOGY: [place] Albrecht PREOPERATIVE DIAGNOSES: Acute appendicitis POSTOPERATIVE DIAGNOSES: Perforated acute appendicitis. PROCEDURE: Laparoscopic appendectomy. SPECIMEN: Appendix. ESTIMATED BLOOD LOSS: 5 mL. DRAINS: None. ANESTHESIA: GET. REASON FOR PROCEDURE: This is a 26-year-old female who presented to the hospital with 1 day of abdominal pain. On workup, she was noted to have evidence of acute appendicitis on both lab work as well as imaging. Because of this, she was consented for a laparoscopic possible open appendectomy. RISKS AND BENEFITS: The risks and benefits were explained for a laparoscopic, possible open appendectomy. These included bleeding, infection, hernia, SC, DVT, PE, injury to surrounding structures including the liver, colon, bowel, bladder, ureter, vessel injury, nerve injury, abscess formation, staple line leak, staple line dehiscence as some of the possible complications. The patient understood and signed informed consent. DESCRIPTION OF PROCEDURE: The patient was placed supine on the operating room table. The patient underwent general endotracheal intubation. A Babb catheter was inserted by the nursing staff. The abdomen was prepped and draped in the usual sterile fashion. A timeout was performed. A periumbilical incision was made and a 5-mm optical trocar was inserted under direct visualization with the laparoscope. Pneumoperitoneum was then established. Subsequently, a 5-mm trocar was placed in the suprapubic area and a 12-mm trocar placed in the left lower quadrant. The patient was placed in Trendelenburg right side up position. After meticulous dissection, the appendix was identified. The appendix was freed from its surrounding structures and the appendix was retracted to the anterior abdominal wall. The base of the appendix was identified. A window was created within the mesentery near the base of the appendix. The appendix at its base was stapled using a laparoscopic Endo-LEO stapler with a white load. The mesoappendix was then transected using a laparoscopic Endo-LEO stapler with a white load. The appendix was placed in an EndoCatch bag. Inspection of both staple lines was identified. The staple line at the base of the appendix was noted to be fully intact. Hemostasis was noted at the staple line of the mesoappendix. Copious irrigation and suction was performed. The appendix was removed from the abdominal cavity and sent off the operative field as specimen. The patient was then placed in left side up position. The 12-mm trocar was removed. The fascia at this site was closed using a 0 Vicryl suture with a Dewayne-Yossi device. The patient was then placed supine. Pneumoperitoneum was desufflated and all further trocars were removed. All incision sites were irrigated and Marcaine was injected at all incision sites. The fascial suture was secured. All incision sites were closed using 4-0 Biosyn. Sterile dressings were applied. The patient tolerated the procedure well. The Babb catheter was removed and the patient was transferred to the recovery room in stable condition. Please note that there was a localized perforation of the appendix. Therefore, copious irrigation and suction was performed, and the patient was continued on antibiotics. ROBER CAPPS M.D. [id number]
--- NOTE | 2017-01-30 08:32 | DS ---
Physical Exam: SUBJECTIVE: Patient seen and examined Pt seen this morning eating breakfast Tolerating food well, no n/v No fever or chills Abdominal pain is controlled with pain medication 4/10 at rest, increases with movement using abdominal muscles Pt is passing gas and had a bowel movement this morning OBJECTIVE: Vital Signs Period Temp Pulse Resp BP Sys/Mccain Pulse Ox Last 24 Hr 97.7 F-98.7 F 64-84 15-18 100-156/52-85 92-100 PHYSICAL EXAM GENERAL: The patient is awake, alert, and fully oriented, in no acute distress. HEAD: Normal with no signs of trauma. NECK: Trachea midline, full range of motion, supple. LUNGS: Breath sounds equal, clear to auscultation bilaterally, no wheezes, no crackles, no accessory muscle use. HEART: Regular rate and rhythm, S1, S2 without murmur, rub or gallop. ABDOMEN: surgical sites for lap Appendectomy well approximated, clean dry and intact. Soft, obese, right lower quadrant mild tenderness, non-distended, normoactive bowel sounds, no guarding, no rebound, no hepatosplenomegaly, no masses. EXTREMITIES: 2+ pulses, warm, well-perfused, no edema. NEUROLOGICAL: Normal speech, normal gait PSYCH: Normal mood, normal affect. SKIN: Warm, dry, normal turgor, no rashes or lesions noted LABS Laboratory Results - last 24 hr 01/29/17 01/29/17 01/30/17 06:35 06:35 06:50 WBC 12.5 H RBC 4.26 Hgb 11.5 Hct 35.3 MCV 82.9 MCHC 32.6 RDW 14.7 Plt Count 199 MPV 8.2 Neutrophils % 81.0 Lymphocytes % 15.1 D Monocytes % 3.6 L Eosinophils % 0.0 D Basophils % 0.3 INR 1.25 H PTT (Actin FS) 29.0 Sodium 141 Potassium 3.7 Chloride 105 Carbon Dioxide 27 Anion Gap 9 BUN 10 Creatinine 0.6 Random Glucose 97 Calcium 8.5 CBC, BMP 01/30/17 06:50 01/30/17 06:50 HOSPITAL COURSE: Date of Admission:01/28/17 26 year old female with pmh of asthma presented to the ED with complaint of abdominal pain, nausea, vomiting. Pt was found to have Acute appendicitis on CT and Pt is day 1 s/p laparoscopic appendectomy with Dr Capps. was started on Unasyn on admission, changed to Levaquin 750mg IV daily, Flagyl 500mg IV q8h. Pt is on Morphine 2mg IV q4h prn and LR at 125 ml/h. Pt was held NPO pre-op and regular diet was resumed post op. diet was well tolerated, no n/v, no fever or chills. pt passed gas and had bowel movement post op. Will discharge pt with PO antibiotics (Levaquin 500 mg PO for 7 days, Flagyl 500 mg PO TID for 7 days), pain medication with Percocet 5-325, 1-2 tablets q6h PRN. Pt has Class III obesity with BMI 57.1, we recommend Weight loss once recover from surgery. F/u with primary care physician within 1 week. Date of Discharge: 01/30/17 Minutes to complete discharge: 35 <Ace Rutherford - Last Filed: 01/30/17 11:02> Physical Exam: ATTENDING PHYSICIAN STATEMENT I saw and evaluated the patient. I reviewed the resident's note and discussed the case with the resident. I agree with the resident's findings and plan as documented. SUBJECTIVE: seen and evaluated at the bedside OBJECTIVE: resting comfortably in bed ASSESSMENT AND PLAN: 26 y/o morbidly obese Female admitted for sepsis due to acute appendicitis -currently afebrile and hemodynamically stable -s/p lap appendectomy by General Surgery Attending; found to have small perforation contained in small space so no drain left in place -discharge on levofloxacin/flagyl for total of 7 day course <Gary Blanton - Last Filed: 01/30/17 12:26> Discharge Summary Reason For Visit: ACUTE APPENDICITIS Current Active Problems Appendicitis, acute (Acute) - Home Medications Comprehensive Discharge Medication List: Ambulatory Orders Docusate Sodium [Colace -] 100 mg PO TID #90 capsule 01/29/17 Levofloxacin [Levaquin -] 500 mg PO DAILY #7 tablet 01/29/17 Metronidazole [Flagyl -] 500 mg PO TID #21 tablet 01/29/17 Oxycodone HCl/Acetaminophen [Percocet 5-325 mg Tablet] 1 - 2 tab PO Q6H #28 tab MDD 4 01/29/17 <Ace Rutherford - Last Filed: 01/30/17 11:02> Current Active Problems Appendicitis, acute (Acute) Leukocytosis (Acute) - Home Medications Comprehensive Discharge Medication List: Ambulatory Orders Docusate Sodium [Colace -] 100 mg PO TID #90 capsule 01/29/17 Levofloxacin [Levaquin -] 500 mg PO DAILY #7 tablet 01/29/17 Metronidazole [Flagyl -] 500 mg PO TID #21 tablet 01/29/17 Oxycodone HCl/Acetaminophen [Percocet 5-325 mg Tablet] 1 - 2 tab PO Q6H #28 tab MDD 4 01/29/17 <Gary Blanton - Last Filed: 01/30/17 12:26> Condition: Stable - Instructions Diet, Activity, Other Instructions: Discharge home resume home diet resume Home activity resume home medication Follow up with your Primary care physician within 1 week Follow up with Dr Capps within 1-2 weeks Start Levaquin Orally 1 tablet daily Start Flagyl orally 1 tablet 3 times per day Percocet 1 or 2 tablets orally every 6 hours for pain. If you start having fever chills, nausea, vomiting, severe abdominal pain, please return to the emergency room Referrals: Aurelio Capps MD [Staff Physician] - Bola Tan MD [Primary Care Provider] - Disposition: HOME This patient is new to me today: Yes Date on this admission: 01/30/17 Emergency Visit: No Critical Care patient: No - Discharge Referral Referred to [facility] Med [facility] No <Ace Rutherford - Last Filed: 01/30/17 11:02>
[2017-01-30 08:34] LABS: CALCIUM 8.7 mg/dL (8.5-10.1); CREATININE 0.7 mg/dL (0.55-1.02)
[2017-01-30] MEDS ORDERED: LEVOFLOXACIN 500 MG IVPB 100 ML IVPB SCH (10:00)
[2017-01-30] MEDS ORDERED: PT OWN MED DRAWER 7, Y5N ONE (10:00)
[2017-01-30] MEDS ORDERED: oxyCODONE HCL 5 MG TABLET PO PRN (11:40)
--- NOTE | 2017-01-30 11:55 | PN ---
Progress Note (short form) - Note Progress Note: POD 1 Laparoscopic appendectomy for perforated appendicitis with localized perforation Pain controlled Tolerating diet Vital Signs Period Temp Pulse Resp BP Sys/Mccain Pulse Ox Last 24 Hr 97.7 F-98.7 F 64-84 15-18 100-156/52-85 92-100 Abd soft, incisional tenderness CBC, BMP 01/30/17 06:50 01/30/17 06:50 Doing well Can be discharged home on antibiotics after 6pm tonight if remains stable
[2017-01-30] MEDS ORDERED: METRONIDAZOLE 500 MG PREMIXED 100 ML IVPB ONE (16:00)
[2017-01-30 17:48] VITALS: BP 127/79; PULSE 77; TEMP 97.8
--- NOTE | 2017-01-31 11:29 | PATH ---
Surgical Pathology Report Patient Name: ALEX MCFARLAND [facility]. Rec. #: [id number] /Age/Gender: 1990 (Age: 26) / F Account: [id number] Location: [address] [place] [address]/[facility] Taken: 01/29/2017 Received: 01/30/2017 Reported: 01/31/2017 Physicians: Aurelio Capps M.D. Specimen(s) Received APPENDIX Clinical History Acute appendicitis Final Diagnosis APPENDIX, APPENDECTOMY: ACUTE APPENDICITIS AND PERIAPPENDICITIS. Electronically Signed Noah Farah M.D. Gross Description Received in formalin, labeled "appendix," is a 5.3 cm. in length vermiform appendix with a stapled margin of resection and abundant attached fat. The serosa is schneider-galvan with attached exudate. Sectioning reveals a hemorrhagic lumen. The wall of the appendix averages 0.1 cm. in thickness. No definite perforation site is identified. Commercial Lines Assistant sections are submitted in 2 cassettes as follows: 1-bisected distal tip of appendix and one cross section of appendix; 2-additional cross section of appendix. /01/30/2017 [facility]01/30/2017
== END 2017-01-30 19:05 | disposition home or self-care (01) | DRG 225 ==
LOC: JERFT 14:40 → JER 14:40 → JERBED 23:16 → UNDOADMIN 01-29 00:03 → JERBED 01-29 00:03 → J6S 01-29 02:42
PROVIDERS: ADMIT Internal Medicine; ATTEND Internal Medicine
PROC: 0DTJ4ZZ Resection of Appendix, Percutaneous Endoscopic Approach (ICD-10-PCS; principal; 2017-01-29 12:00)
DX: K35.3 Acute appendicitis with localized peritonitis (principal); J45.909 Unspecified asthma, uncomplicated; K57.30 Diverticulosis of large intestine without perforation or abscess without bleeding; F17.210 Nicotine dependence, cigarettes, uncomplicated; E66.01 Morbid (severe) obesity due to excess calories; Z68.43 Body mass index [BMI] 50.0-59.9, adult; D72.829 Elevated white blood cell count, unspecified
CPT/HCPCS: 36415; 74176-TC; 80048; 80053; 81003; 81015; 84703; 85025; 85610; 85730; 86850; 86900; 86901; 87040; 88304-TC; 94760; 99285-25; Q9967

== ENCOUNTER → 2017-07-23 | Emergency (ER) | payer OTHER ==
[2017-07-23 17:24] VITALS: BP 158/112; PULSE 125; TEMP 98.3; BMI 58.2
--- NOTE | 2017-07-23 19:42 | PDOC ---
*Physical Exam - Vital Signs Last Vital Signs Temp Pulse Resp BP Pulse Ox 98.3 F 125 H 20 158/112 98 07/23/17 17:15 07/23/17 17:15 07/23/17 17:15 07/23/17 17:15 07/23/17 17:15 Medical Decision Making - Medical Decision Making 07/27/17 16:37 Pt eloped prior to my evaluation. Given tachycardia and hypertension on presentation, we did place a call to the patient to return for evaluation but did not get an answer. On chart review, pt returned to the ED the next day for evaluation. *DC/Admit/Observation/Transfer Diagnosis at time of Disposition: Patient left before evaluation by physician - Discharge Dispostion Disposition: LEFT BEFORE [facility] - Referrals Referrals: Bola Tan MD [Primary Care Provider] - - Attestations Physician Attestion: 07/27/17 16:40 I, Dr. Shola Rashid MD, attest that this document has been prepared under my direction and personally reviewed by me in its entirety. I further attest, that it accurately reflects all work, treatment, procedures and medical decision -making performed by me.
--- NOTE | 2017-07-29 20:27 | EKG ---
Test Reason : Blood Pressure : / mmHG Vent. Rate : 082 BPM Atrial Rate : 082 BPM P-R Int : 142 ms QRS Dur : 092 ms QT Int : 368 ms P-R-T Axes : 036 053 039 degrees QTc Int : 429 ms NORMAL SINUS RHYTHM NORMAL ECG NO PREVIOUS ECGS AVAILABLE SUBMITTED ON07-29-2017 REPEAT EKG IF CLINICALLY INDICATED Confirmed by MERCED LUCIO MD ([id number]) on 07/29/2017 8:26:58 PM Referred By: Confirmed By:MERCED LUCIO MD
== END | disposition left against medical advice (07) ==
LOC: JER 17:12
DX: Z53.21 Procedure and treatment not carried out due to patient leaving prior to being seen by health care provider (principal)
CPT/HCPCS: 93005; 93010; 99283-25

== ENCOUNTER 2017-07-24 21:19 | Emergency (ER) | payer OTHER ==
[2017-07-24 21:44] VITALS: TEMP 98.2; BMI 58.2
[2017-07-24] MEDS ORDERED: ASPIRIN 81 MG CHEWABLE TABLETS PO ONE (22:51)
[2017-07-24] MEDS ORDERED: ASPIRIN 81 MG CHEWABLE TABLETS ONE (22:57)
[2017-07-24 23:26] LABS: BASOPHIL 0.8 % (0-2.0); EOSINOPHIL 2.5 % (0-4.5); MCHC 32.6 g/dl (32.0-36.0); MEAN CELL VOLUME 82.9 fl (80-96); NEUTROPHILS 69.5 % (42.8-82.8); PLATELET COUNT 210 K/MM3 (134-434); RDW 14.5 % (11.6-15.6); WHITE BLOOD COUNT 12.3 K/mm3 (4.0-10.0)
[2017-07-24 23:40] LABS: INR 1.12 (0.82-1.09); PROTHROMBIN TIME (PATIENT) 12.3 SEC (9.98-11.88)
[2017-07-24 23:49] LABS: ALBUMIN 3.5 g/dl (3.4-5.0); ANION GAP 9 (8-16); BILIRUBIN,TOTAL 0.4 mg/dL (0.2-1.0); CALCIUM 8.8 mg/dL (8.5-10.1); CO2 25 mmol/L (21-32); CREATININE 0.6 mg/dL (0.55-1.02); GLUCOSE,RANDOM 101 mg/dL (74-106); SGOT/AST 9 U/L (15-37); SGPT/ALT 21 U/L (12-78)
[2017-07-24 23:50] LABS: ALK PHOS 91 U/L (45-117); CPK 87 IU/L (26-192); MAGNESIUM 2.2 mg/dL (1.8-2.4)
[2017-07-24 23:51] LABS: TROPONIN I < 0.02 ng/ml (0.00-0.05)
--- NOTE | 2017-07-25 00:20 | PDOC ---
Attending Attestation - Resident Resident Name: MclaughlinKaylie - ED Attending Attestation I have performed the following: I have examined & evaluated the patient, The case was reviewed & discussed with the resident, I agree w/resident's findings & plan, Exceptions are as noted - HPI HPI: 07/25/17 00:16 26 F with no PMH presents to ER with several weeks of intermittent chest pain. Pt reports short episodes of sharp left sided pain. Each episode lasts about a minute and resolve spontaneously. The pain is not pleuritic, not exertional. Is sometimes exacerbated by movement. She denies any pain currently. Denies SOB. Pt denies F/C. Denies cough. Denies h/o DVT/PE. Denies leg swelling currently but states that she had a swollen R ankle several weeks ago that has since resolved. - Physicial Exam PE: 07/25/17 00:18 "GENERAL: Awake, alert, and fully oriented, in no acute distress HEAD: No signs of trauma EYES: PERRLA, EOMI, sclera anicteric, conjunctiva clear ENT: Auricles normal inspection, hearing grossly normal, nares patent, oropharynx clear without exudates. Moist mucosa NECK: Nontender, no stepoffs, Normal ROM, supple, no lymphadenopathy, JVD, or masses LUNGS: Breath sounds equal, clear to auscultation bilaterally. No wheezes, and no crackles HEART: Regular rate and rhythm, normal S1 and S2, no murmurs, rubs or gallops ABDOMEN: Soft, nontender, normoactive bowel sounds. No guarding, no rebound. No masses EXTREMITIES: Normal range of motion, no edema. No clubbing or cyanosis. No cords, erythema, or tenderness NEUROLOGICAL: Cranial nerves II through XII intact. 5/5 strength and sensation in all extremities, Normal speech, normal gait SKIN: Warm, Dry, normal turgor, no rashes or lesions noted. " - Medical Decision Making 07/25/17 00:18 26 F with intermittent chest pain x several weeks. Atypical in nature. Pt with no ischemic EKG changes. No PE risk factors, though she does describe R leg swelling weeks ago. - labs, trop, ddimer - CXR - UPT 07/25/17 00:34 CXR unremarkable UA clean Trop and ddimer negative. Labs remarkable only for WBC 12. Pt with no infectious symptoms, afebrile. Discharge Disposition - Diagnosis Atypical chest pain - Discharge Dispostion Disposition: HOME Last Admission D/C Date: 01/30/17 - Referrals Referrals: Bola Tan MD [Primary Care Provider] - - Patient Instructions Printed Discharge Instructions: DI for Atypical Chest Pain Additional Instructions: Please go to your scheduled Primary Care Doctor appointment on Friday with Dr. Tan. Please return to the hospital with persistent or worsening chest pain, palpitations or difficulty breathing. - Post Discharge Activity
--- NOTE | 2017-07-25 00:24 | PDOC ---
History of Present Illness - General Chief Complaint: Chest Pain Stated Complaint: EVALUATION Time Seen by Provider: 07/24/17 22:28 History Source: Patient Exam Limitations: No Limitations - History of Present Illness Initial Comments: 26yo F with PMH of asthma presents c/o chest pain x 2 weeks. Pt was in ER yesterday for same c/o but eloped. Pain is intermittent, sometimes radiates to Left shoulder/down Left arm, described as sharp, rated as 6/10 at its peak. Pain has been occurring more frequently over the last 2 days. 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 Ultimately, pt hopes pain is due to stress. Pt's mother had an IL at age 61 back in January, followed by bypass surgery, and then her mother suddenly in March 2017. In January, pt had an appendectomy, and she and her mother were in the hospital (different hospitals) at the same time. 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 Pt brought daughter to hospital twice in the last month for high fevers. Pt has been experiencing a lot of stress lately. Pt c/o diaphoresis this evening associated with the chest pain, prompting her to come to the ER. 07/25/17 00:18 Associated Symptoms: reports: chest pain, diaphoresis. denies: cough, fever/ chills, headaches, nausea/vomiting, rash Past History - Past Medical History Allergies/Adverse Reactions: Allergies Allergy/AdvReac Type Severity Reaction Status Date / Time shellfish derived Allergy Severe Difficulty Verified 07/23/17 17:24 Breathing Home Medications: Ambulatory Orders Docusate Sodium [Colace -] 100 mg PO TID #90 capsule 01/29/17 Levofloxacin [Levaquin -] 500 mg PO DAILY #7 tablet 01/29/17 Metronidazole [Flagyl -] 500 mg PO TID #21 tablet 01/29/17 Oxycodone HCl/Acetaminophen [Percocet 5-325 mg Tablet] 1 - 2 tab PO Q6H #28 tab MDD 4 01/29/17 Asthma: Yes Cancer: No Cardiac Disorders: No Diabetes: No HTN: No Seizures: No Thyroid Disease: Yes (WITH PREG.) - Surgical History Appendectomy: Yes (01/2017 here) Other Surgical History: 2 c-sections 07/25/17 00:26 - Family Disease History Family Disease History: Heart Disease: Mother (IL and passed at age 61, smoked x 40 yrs) - Suicide/Smoking/Psychosocial Hx Smoking History: Current every day smoker Have you smoked in the past 12 months: No Number of Cigarettes Smoked Daily: 5 Information on smoking cessation initiated: No 'Breaking Loose' booklet given: 07/23/17 Hx Alcohol Use: No Drug/Substance Use Hx: No Substance Use Type: None Hx Substance Use Treatment: No Review of Systems - Review of Systems Able to Perform ROS?: Yes Is the patient limited Ugandan proficient: No Constitutional: Yes: Diaphoresis. No: Chills, Fever HEENTM: No: Recent change in vision, Ear Pain, Nose Pain, Throat Pain Respiratory: No: Cough, Stridor, Wheezing, Hemoptysis Cardiac (ROS): Yes: Chest Pain. No: Edema, Irregular Heart Rate, Lightheadedness, Palpitations, Chest Tightness ABD/GI: No: Abdominal Distended, Constipated, Diarrhea, Nausea, Vomiting, Abdominal cramping : No: Dysuria, Hematuria Musculoskeletal: Yes: Back Pain (chronic since pregnancies). No: Muscle Pain Integumentary: No: Bruising, Erythema, Rash Neurological: No: Headache, Numbness, Paresthesia, Unsteady Gait Hematologic/Lymphatic: No: Easy Bleeding, Easy Bruising *Physical Exam - Vital Signs Last Vital Signs Temp Pulse Resp BP Pulse Ox 98.2 F 79 19 143/91 98 07/24/17 21:42 07/24/17 21:42 07/24/17 21:42 07/24/17 21:42 07/24/17 21:42 - Physical Exam General Appearance: Yes: Appropriately Dressed, Mild Distress, Obese HEENT: positive: EOMI, Normal Voice, Other (moist mucous membranes). negative: Pale Conjunctivae, Scleral Icterus (R), Scleral Icterus (L), Nasal Congestion, Rhinorrhea Neck: positive: Trachea midline, Supple Respiratory/Chest: positive: Lungs Clear, Normal Breath Sounds. negative: Respiratory Distress, Accessory Muscle Use Cardiovascular: positive: Regular Rhythm, Regular Rate, S1, S2. negative: Murmur Gastrointestinal/Abdominal: positive: Soft. negative: Distended, Guarding, Rebound, Tenderness Musculoskeletal: positive: Normal Inspection. negative: Decreased Range of Motion Extremity: positive: Normal Inspection. negative: Swelling, Calf Tenderness, Erythema Integumentary: positive: Normal Color, Dry, Warm Neurologic: positive: Fully Oriented, Alert, Normal Mood/Affect, Normal Response , Motor Strength 03/07 ED Treatment Course - LABORATORY CBC & Chemistry Diagram: 07/24/17 23:12 07/24/17 23:12 - ADDITIONAL ORDERS Additional order review: Laboratory Results 07/24/17 07/24/17 07/24/17 23:45 23:13 23:12 WBC RBC Hgb Hct MCV MCH MCHC RDW Plt Count MPV Neutrophils % Lymphocytes % Monocytes % Eosinophils % Basophils % PT with INR 12.30 H INR 1.12 D-Dimer < 200 Sodium Potassium Chloride Carbon Dioxide Anion Gap BUN Creatinine Creat Clearance w eGFR Random Glucose Calcium Magnesium Total Bilirubin AST ALT Alkaline Phosphatase Creatine Kinase Troponin I Total Protein Albumin Serum , Qual Negative 07/24/17 07/24/17 07/24/17 23:12 23:12 23:12 WBC 12.3 H RBC 4.50 Hgb 12.2 Hct 37.3 MCV 82.9 MCH 27.0 MCHC 32.6 RDW 14.5 Plt Count 210 MPV 8.0 Neutrophils % 69.5 Lymphocytes % 22.5 D Monocytes % 4.7 Eosinophils % 2.5 D Basophils % 0.8 PT with INR INR D-Dimer Sodium 140 Potassium 4.2 Chloride 106 Carbon Dioxide 25 Anion Gap 9 BUN 13 Creatinine 0.6 Creat Clearance w eGFR > 60 Random Glucose 101 Calcium 8.8 Magnesium 2.2 Total Bilirubin 0.4 D AST 9 L ALT 21 Alkaline Phosphatase 91 D Creatine Kinase 87 Troponin I < 0.02 Total Protein 7.0 Albumin 3.5 Serum , Qual 07/24/17 23:12 RBC 4.50 MCV 82.9 MCHC 32.6 RDW 14.5 MPV 8.0 Neutrophils % 69.5 Lymphocytes % 22.5 D Monocytes % 4.7 Eosinophils % 2.5 D Basophils % 0.8 - RADIOLOGY Radiology Studies Ordered: Category Date Time Status CHEST PA & LAT [RAD] Stat Radiology 07/24/17 22:51 Taken - Medications Given in the ED: ED Medications Discontinued Medications Generic Name Dose Route Start Last Admin Trade Name Freq PRN Reason Stop Dose Admin Aspirin 162 mg 07/24/17 22:51 09/21/17 23:26 Asa - PO 07/24/17 22:52 162 mg ONCE ONE Administration Medical Decision Making - Medical Decision Making 26yo F with PMH of asthma c/o chest pain x 2 weeks. Physical exam unremarkable. d-dimer (-) CXR appears negative normal, though official read is pending CBC -> leukocytosis, f/u with PCP. If fever spikes -> return to ER. CMP -> wnl INR -> wnl PT -> 12.3 serum (-) Mg -> wnl troponin (-) 07/25/17 00:31 07/25/17 00:36 EKG -> NSR UA and TSH pending. Case signed off to attending, Dr. Hines. *DC/Admit/Observation/Transfer Diagnosis at time of Disposition: Atypical chest pain - Referrals Referrals: Bola Tan MD [Primary Care Provider] - - Patient Instructions Printed Discharge Instructions: DI for Atypical Chest Pain Additional Instructions: Please go to your scheduled Primary Care Doctor appointment on Friday with Dr. Tan. Please return to the hospital with persistent or worsening chest pain, palpitations or difficulty breathing.
[2017-07-25 01:03] LABS: URINE APPEARANCE CLOUDY; URINE BILIRUBIN NEGATIVE (NEGATIVE); URINE BLOOD 3+ (NEGATIVE); URINE COLOR YELLOW; URINE GLUCOSE (UA) NEGATIVE (NEGATIVE); URINE KETONE NEGATIVE (NEGATIVE); URINE LEUK ESTERASE NEGATIVE (NEGATIVE); URINE NITRITE NEGATIVE (NEGATIVE); URINE UROBILINOGEN NEGATIVE mg/dL (0.2-1.0)
[2017-07-25 01:04] LABS: URINE PROTEIN 1+ (NEGATIVE)
[2017-07-25 01:33] LABS: URINE RBC 2273 /hpf (0-3); URINE WBC 11 /hpf (3-5)
[2017-07-25 02:35] VITALS: BP 135/73; PULSE 85
--- NOTE | 2017-07-25 09:14 | EKG ---
Test Reason : Blood Pressure : / mmHG Vent. Rate : 079 BPM Atrial Rate : 079 BPM P-R Int : 156 ms QRS Dur : 092 ms QT Int : 382 ms P-R-T Axes : 028 040 039 degrees QTc Int : 438 ms NORMAL SINUS RHYTHM NORMAL ECG WHEN COMPARED WITH ECG OF 23-JUL-2017 17:22, NO SIGNIFICANT CHANGE WAS FOUND Confirmed by CARO VIZCAINO MD ([id number]) on 07/25/2017 9:14:10 AM Referred By: Confirmed By:CARO VIZCAINO MD
[2017-07-25 12:55] LABS: THYROID STIMULATING HORMONE 1.77 uIU/ml (0.358-3.74)
== END 2017-07-25 02:39 | disposition home or self-care (01) ==
LOC: JER 21:19
DX: R07.89 Other chest pain (principal); Z87.09 Personal history of other diseases of the respiratory system
CPT/HCPCS: 36415; 71020-TC; 80053; 81003; 81015; 83735; 84443; 84484; 84703; 85025; 85379; 85610; 87086; 93005; 93010; 99283-25